=== PATIENT | female | born 1990 | race African-American/Black ===

== ENCOUNTER 2016-07-27 13:48 | Emergency (ER) | payer OTHER ==
[~2016-07-27] VITALS: Ht 162.6 cm; Wt 83.9 kg
[~2016-07-27 13:48] MED LIST: DIPHENHIST50 MG PO; FLEXERIL PO; IBUPROFEN 600600 M1 PO; MIRALAX17 GM PO; NORCO 5-325 TA1 EACH PO; ONDANSETRON HCL4 M2 PO; PHENERGAN 25 MG25 M1 PO; VENTOLIN HFA 1818 GM INH
[2016-07-27 14:06] VITALS: BP 117/69
[2016-07-27] MEDS ORDERED: CLARITIN10 MG PO (14:59)
== END 2016-07-27 15:24 | disposition home or self-care (01) ==
LOC: ER 13:48
DX: J00 Acute nasopharyngitis [common cold] (principal); J02.9 Acute pharyngitis, unspecified; J45.909 Unspecified asthma, uncomplicated; K58.9 Irritable bowel syndrome, unspecified; Z91.018 Allergy to other foods